=== PATIENT | female | born 1995 | race Two or more races ===

== ENCOUNTER 2023-10-17 10:31 | Inpatient (IN) | payer MEDICAID ==
[2023-09-04 11:05] LABS: Urine Bacteria FEW /hpf (None Seen); Urine Blood Negative /uL (Negative); Urine Clarity Clear (Clear); Urine Color Colorless (Yellow); Urine Protein, UAD Negative (Negative); Urine Specific Gravity 1.004 (1.001-1.035); Urine Urobilinogen Normal (Negative); Urine WBC 1 /hpf (0 - 5)
[2023-09-04 11:12] LABS: Basophils # (auto) 0.1 10 ^3/uL (0-0.2); Basophils % (auto) 1.3 % (0.0-2.0); Eosinophils # (auto) 0.1 10 ^3/uL (0-0.8); Eosinophils % (auto) 1.2 % (0.0-7.0); Hemoglobin 11.5 g/dL (12.2-16.2); Lymphocytes # (auto) 1.8 10 ^3/uL (0.4-5.4); Lymphocytes % (auto) 31.2 % (10.0-50.0); Mean Corpuscular Hemoglobin 32.2 pg (28.0-32.0); Mean Corpuscular Volume 97.7 fL (80.0-100.0); Monocytes # (auto) 0.5 10 ^3/uL (0-1.3); Monocytes % (auto) 8.9 % (0.0-12.0); Neutrophils # (auto) 3.2 10 ^3/uL (1.6-8.6); Neutrophils % (auto) 57.4 % (37.0-80.0); Red Blood Cells 3.58 10^6/uL (4.0-5.20); Red Cell Distribution Width 18.1 % (11.8-14.3); White Blood Cell 5.6 10^3/uL (4.4-10.8)
[2023-09-04 11:16] LABS: INR 0.93 (0.9-1.15); Partial Thromboplastin Time 29.1 SEC (24.5-34.5); Prothrombin Time 9.9 sec (9.3-11.8)
[2023-09-04 12:01] LABS: Alanine Aminotransferase 17 U/L (7-40); Alkaline Phosphatase 72 U/L (46-116); Anion Gap 7 (5-15); Calcium 9.8 mg/dL (8.5-10.1); Carbon Dioxide 28 mmol/L (20-30); Chloride 104 mmol/L (98-107); Glucose 86 mg/dL (74-106); Potassium 3.9 mmol/L (3.5-5.1); Sodium 139 mmol/L (136-145)
[2023-09-04 12:02] LABS: Aspartate Aminotransferase 21 U/L (13-40)
[2023-09-04 12:03] LABS: Bilirubin, Total 0.4 mg/dL (0.2-1.0); Total Protein 7.8 g/dL (5.7-8.2)
[2023-09-04 12:08] LABS: BUN/Creatinine Ratio 7.4 (10.0-20.0); Blood Urea Nitrogen < 5 mg/dL (9-23)
[2023-10-15 09:02] LABS: Urine Bacteria FEW /hpf (None Seen); Urine Blood 1+ /uL (Negative); Urine Clarity Clear (Clear); Urine Color Light-Yellow (Yellow); Urine Protein, UAD Negative (Negative); Urine Specific Gravity 1.022 (1.001-1.035); Urine Urobilinogen Normal (Negative); Urine WBC <1 /hpf (0 - 5)
[2023-10-15 09:04] LABS: Basophils # (auto) 0 10 ^3/uL (0-0.2); Eosinophils # (auto) 0 10 ^3/uL (0-0.8); Eosinophils % (auto) 1.2 % (0.0-7.0); Hemoglobin 10.9 g/dL (12.2-16.2); Lymphocytes # (auto) 1.4 10 ^3/uL (0.4-5.4); Lymphocytes % (auto) 40.9 % (10.0-50.0); Mean Corpuscular Hemoglobin 31.7 pg (28.0-32.0); Mean Corpuscular Hgb Conc. 32.9 g/dL (32.0-36.0); Mean Corpuscular Volume 96.4 fL (80.0-100.0); Monocytes # (auto) 0.3 10 ^3/uL (0-1.3); Neutrophils # (auto) 1.7 10 ^3/uL (1.6-8.6); Neutrophils % (auto) 48.9 % (37.0-80.0); Nucleated Red Blood Cells % 0.1 %; Red Blood Cells 3.43 10^6/uL (4.0-5.20); Red Cell Distribution Width 18.1 % (11.8-14.3); White Blood Cell 3.5 10^3/uL (4.4-10.8)
[2023-10-15 09:09] LABS: INR 0.93 (0.9-1.15); Partial Thromboplastin Time 29.2 SEC (24.5-34.5); Prothrombin Time 9.9 sec (9.3-11.8)
[2023-10-15 09:25] LABS: Alanine Aminotransferase 11 U/L (7-40); Albumin 4.5 g/dL (3.2-4.8); Alkaline Phosphatase 60 U/L (46-116); Anion Gap 4 (5-15); Aspartate Aminotransferase 12 U/L (13-40); BUN/Creatinine Ratio 14.5 (10.0-20.0); Bilirubin, Total 0.4 mg/dL (0.2-1.0); Blood Urea Nitrogen 9 mg/dL (9-23); Calcium 9.4 mg/dL (8.7-10.4); Carbon Dioxide 27 mmol/L (20-30); Chloride 107 mmol/L (98-107); Glucose 83 mg/dL (74-106); Potassium 4.2 mmol/L (3.5-5.1); Sodium 138 mmol/L (136-145)
[2023-10-15 09:26] LABS: Total Protein 6.8 g/dL (5.7-8.2)
[~2023-10-17] VITALS: Ht 162.6 cm; Wt 80.0 kg
[~2023-10-17 10:31] MED LIST: PROPOFOL 10 MG/ML 20 ML IV ONE; fentaNYL CITRATE 100 MCG/2 ML VL ONE
[2023-10-17] MEDS: ceFAZolin 2 GM/D5W50ml 50 ML IV ONE (11:05)
[2023-10-17] MEDS: SUCCINYLCHOLINE CHLORIDE 20 MG/ML 10ML VIAL IV ONE (11:19)
[2023-10-17] MEDS ORDERED: fentaNYL CITRATE 100 MCG/2 ML VL ONE (11:23)
[2023-10-17] MEDS: LIDOCAINE 1% HCL (LOCAL ANESTH.) INJ 20ML MDV ONE (11:27)
[2023-10-17] MEDS: LIDOCAINE 2% JELLY 11ml (GLYDO) ONE (11:45)
[2023-10-17] MEDS ORDERED: MEPERIDINE HCL (50 MG/ML) 1 ML VIAL ONE (11:57)
[2023-10-17] MEDS: LIDOCAINE HCL 2% TOP JELLY 5ML TOP ONE (12:00)
[2023-10-17] MEDS ORDERED: ONDANSETRON HCL 4 MG/2 ML VIAL ONE (12:07)
[2023-10-17] MEDS ORDERED: DexAMETHasone SOD PHOS 10MG/1ML VIAL INJ ONE (12:07)
[2023-10-17] MEDS: LIDOCAINE W/ EPINEPHRINE 2% INJ 20ML VIAL ONE (12:09)
[2023-10-17] MEDS: GELATIN 1 SPONGE SIZE 100 TOP ONE (12:25)
[2023-10-17] MEDS ORDERED: SUGAMMADEX 200mg/2ml Vial (100MG/ML) IV ONE (12:45)
[2023-10-17] MEDS ORDERED: ROCURONIUM 10MG/ML 10ML VIAL IV ONE (12:46)
[2023-10-17 12:48] VITALS: PULSE 74; RESP 15; O2SAT 98
[2023-10-17] MEDS ORDERED: MEPERIDINE HCL (25 MG/ML) 1ML VIAL IV PRN (13:00)
[2023-10-17] MEDS ORDERED: HYDROmorphone HCL 2 MG/ML VL/or syr IV PRN (13:00)
[2023-10-17] MEDS: ONDANSETRON HCL 4 MG/2 ML VIAL IV ONE (13:00)
[2023-10-17] MEDS: ONDANSETRON HCL 4 MG/2 ML VIAL ONE (13:03)
[2023-10-17] MEDS: HYDROmorphone HCL 2 MG/ML VL/or syr IV ONE ×2 (13:33→14:09)
[2023-10-17] MEDS: metroNIDAZOLE 500MG/100ML 100 ML IV SCH (14:31)
[2023-10-17 15:30] VITALS: BP 132/82; PULSE 94; RESP 18; TEMP 98.7; O2SAT 100; O2SAT 97
[2023-10-17] MEDS ORDERED: NITROGLYCERIN 0.4 MG SL TAB SL PRN (15:30)
[2023-10-17] MEDS: MORPHINE SULFATE INJ 2 MG/ml SYRG IV PRN (17:23)
[2023-10-17] MEDS: ONDANSETRON HCL 4 MG/2 ML VIAL IV PRN (17:24)
[2023-10-17 20:00] VITALS: PULSE 89; RESP 16; O2SAT 100
[2023-10-17 21:00] VITALS: BP 141/91; PULSE 89; RESP 16; TEMP 98.4; O2SAT 100
[2023-10-17 22:42] LABS: Hematocrit 35.4 % (36.0-46.0); Hemoglobin 11.4 g/dL (12.2-16.2)
[2023-10-17] MEDS: D5W/SOD CHL 0.45%/KCL 20MEQ 1,000 ML IV SCH (22:45)
[2023-10-18] VITALS (8 sets, daily range): BP systolic 131–144; BP diastolic 81–93; PULSE 60–84; RESP 14–20; TEMP 97.9–98.6; O2SAT 95–100
[2023-10-18] MEDS: DOCUSATE SOD 100 MG CAP PO SCH (00:27)
[2023-10-18 02:02] LABS: INR 1.04 (0.9-1.15); Partial Thromboplastin Time 28.9 SEC (24.5-34.5)
[2023-10-18] MEDS ORDERED: MIDAZOLAM HCL 2MG/2ML 2ml VIAL (1mg/ml) ONE (02:49)
[2023-10-18] MEDS ORDERED: MEPERIDINE HCL (50 MG/ML) 1 ML VIAL ONE (02:49)
[2023-10-18] MEDS: LIDOCAINE W/ EPINEPHRINE 2% INJ 20ML VIAL ONE ×2 (02:49→02:55)
[2023-10-18] MEDS: BUPIVACAINE 0.25% INJ 50ML VIAL ONE ×2 (02:49→02:56)
[2023-10-18] MEDS ORDERED: fentaNYL CITRATE 100 MCG/2 ML VL ONE (02:49)
[2023-10-18] MEDS: LIDOCAINE W/ EPINEPHRINE 1% 20ML VIAL ONE (02:50)
[2023-10-18] MEDS: BUPIVACAINE W/ EPINEPH 0.5% INJ 50ML MDV IJ ONE (02:56)
[2023-10-18] MEDS: ONDANSETRON HCL 4 MG/2 ML VIAL IV ONE (03:00)
[2023-10-18] MEDS ORDERED: ePHEDrine SULFATE 50 MG/ML AMP IV PRN (03:00)
[2023-10-18] MEDS ORDERED: MIDAZOLAM HCL 2MG/2ML 2ml VIAL (1mg/ml) IV PRN (03:00)
[2023-10-18] MEDS ORDERED: hydrALAZINE HCL 20 MG/ML VL IV PRN (03:00)
[2023-10-18] MEDS ORDERED: MORPHINE SULFATE 4 MG/ML SYR/VIAL IV PRN (03:00)
[2023-10-18] MEDS ORDERED: PROPOFOL 10 MG/ML 20 ML IV ONE (03:19)
[2023-10-18] MEDS ORDERED: DexAMETHasone SOD PHOS 10MG/1ML VIAL INJ ONE (03:19)
[2023-10-18] MEDS: LIDOCAINE 2% JELLY 11ml (GLYDO) ONE (03:43)
[2023-10-18] MEDS: GELATIN 1 SPONGE SIZE 100 TOP ONE (03:43)
[2023-10-18] MEDS ORDERED: ONDANSETRON HCL 4 MG/2 ML VIAL ONE (03:49)
[2023-10-18] MEDS: HYDROmorphone HCL 2 MG/ML VL/or syr IV PRN ×2 (04:09→11:42)
[2023-10-18] MEDS: PANTOPRAZOLE 40 MG/10 ML VIAL INJ IV SCH (07:30)
[2023-10-18 07:47] LABS: Basophils # (auto) 0 10 ^3/uL (0-0.2); Basophils % (auto) 0.2 % (0.0-2.0); Eosinophils # (auto) 0 10 ^3/uL (0-0.8); Eosinophils % (auto) 0.1 % (0.0-7.0); Hematocrit 32.6 % (36.0-46.0); Hemoglobin 10.7 g/dL (12.2-16.2); Lymphocytes # (auto) 0.6 10 ^3/uL (0.4-5.4); Lymphocytes % (auto) 9.3 % (10.0-50.0); Mean Corpuscular Hemoglobin 32.1 pg (28.0-32.0); Mean Corpuscular Hgb Conc. 32.8 g/dL (32.0-36.0); Monocytes # (auto) 0.1 10 ^3/uL (0-1.3); Monocytes % (auto) 2.2 % (0.0-12.0); Neutrophils # (auto) 5.6 10 ^3/uL (1.6-8.6); Neutrophils % (auto) 88.2 % (37.0-80.0); Nucleated Red Blood Cells % 0.2 %; Red Blood Cells 3.33 10^6/uL (4.0-5.20); Red Cell Distribution Width 18.5 % (11.8-14.3); White Blood Cell 6.4 10^3/uL (4.4-10.8)
[2023-10-18 08:00] LABS: Alanine Aminotransferase 10 U/L (7-40); Albumin 4.3 g/dL (3.2-4.8); Alkaline Phosphatase 54 U/L (46-116); Anion Gap 5 (5-15); Aspartate Aminotransferase 19 U/L (13-40); Bilirubin, Total 0.4 mg/dL (0.2-1.0); Calcium 9.1 mg/dL (8.7-10.4); Carbon Dioxide 24 mmol/L (20-30); Chloride 106 mmol/L (98-107); Glucose 124 mg/dL (74-106); Potassium 4.2 mmol/L (3.5-5.1); Sodium 135 mmol/L (136-145); Total Protein 6.5 g/dL (5.7-8.2)
[2023-10-18 08:03] LABS: BUN/Creatinine Ratio 8.5 (10.0-20.0); Blood Urea Nitrogen < 5 mg/dL (9-23)
[2023-10-18 11:23] LABS: Basophils # (auto) 0 10 ^3/uL (0-0.2); Basophils % (auto) 0.3 % (0.0-2.0); Eosinophils # (auto) 0 10 ^3/uL (0-0.8); Eosinophils % (auto) 0.3 % (0.0-7.0); Hematocrit 31.6 % (36.0-46.0); Hemoglobin 10.3 g/dL (12.2-16.2); Lymphocytes # (auto) 0.7 10 ^3/uL (0.4-5.4); Lymphocytes % (auto) 10.6 % (10.0-50.0); Mean Corpuscular Hemoglobin 31.5 pg (28.0-32.0); Mean Corpuscular Hgb Conc. 32.6 g/dL (32.0-36.0); Mean Corpuscular Volume 96.7 fL (80.0-100.0); Monocytes # (auto) 0.2 10 ^3/uL (0-1.3); Monocytes % (auto) 2.4 % (0.0-12.0); Neutrophils # (auto) 6.1 10 ^3/uL (1.6-8.6); Neutrophils % (auto) 86.4 % (37.0-80.0); Nucleated Red Blood Cells % 0.1 %; Red Blood Cells 3.27 10^6/uL (4.0-5.20); Red Cell Distribution Width 18.3 % (11.8-14.3)
[2023-10-18] MEDS: levoFLOXacin 500MG 100 ML IV ONE (11:28)
[2023-10-19] VITALS (8 sets, daily range): BP systolic 125–150; BP diastolic 77–93; PULSE 60–65; RESP 14–20; TEMP 97.3–98.6; O2SAT 98–100
[2023-10-19 07:52] LABS: Basophils # (auto) 0 10 ^3/uL (0-0.2); Basophils % (auto) 0.4 % (0.0-2.0); Eosinophils # (auto) 0 10 ^3/uL (0-0.8); Eosinophils % (auto) 0.1 % (0.0-7.0); Hematocrit 29.1 % (36.0-46.0); Hemoglobin 9.5 g/dL (12.2-16.2); Lymphocytes # (auto) 1.9 10 ^3/uL (0.4-5.4); Lymphocytes % (auto) 34.4 % (10.0-50.0); Mean Corpuscular Hemoglobin 31.2 pg (28.0-32.0); Mean Corpuscular Hgb Conc. 32.6 g/dL (32.0-36.0); Mean Corpuscular Volume 95.5 fL (80.0-100.0); Monocytes # (auto) 0.5 10 ^3/uL (0-1.3); Monocytes % (auto) 9.3 % (0.0-12.0); Neutrophils # (auto) 3.1 10 ^3/uL (1.6-8.6); Neutrophils % (auto) 55.8 % (37.0-80.0); Nucleated Red Blood Cells % 0.1 %; Red Blood Cells 3.04 10^6/uL (4.0-5.20); White Blood Cell 5.5 10^3/uL (4.4-10.8)
[2023-10-19 07:57] LABS: Chloride 105 mmol/L (98-107); Potassium 3.2 mmol/L (3.5-5.1); Sodium 139 mmol/L (136-145)
[2023-10-19 07:58] LABS: Anion Gap 5 (5-15); Calcium 8.7 mg/dL (8.7-10.4); Carbon Dioxide 29 mmol/L (20-30)
[2023-10-19 08:03] LABS: Glucose 87 mg/dL (74-106)
[2023-10-19 08:07] LABS: BUN/Creatinine Ratio 8.3 (10.0-20.0); Blood Urea Nitrogen < 5 mg/dL (9-23)
[2023-10-19] MEDS: levoFLOXacin 500MG 100 ML IV SCH (09:33)
[2023-10-19] MEDS: LIDOCAINE 2% TOPICAL JELLY 5 ML URJT TOP PRN (09:41)
[2023-10-19] MEDS: POTASSIUM CHL 20 Meq TABLET PO ONE (14:46)
[2023-10-20 01:00] VITALS: BP 134/82; PULSE 63; RESP 20; TEMP 98.2; O2SAT 100
[2023-10-20 05:00] VITALS: BP 125/77; PULSE 70; RESP 20; TEMP 98.3; O2SAT 100
[2023-10-20 06:15] LABS: Basophils # (auto) 0 10 ^3/uL (0-0.2); Basophils % (auto) 0.5 % (0.0-2.0); Eosinophils # (auto) 0.1 10 ^3/uL (0-0.8); Eosinophils % (auto) 1.2 % (0.0-7.0); Hematocrit 30.2 % (36.0-46.0); Hemoglobin 9.8 g/dL (12.2-16.2); Lymphocytes # (auto) 1.9 10 ^3/uL (0.4-5.4); Lymphocytes % (auto) 43.9 % (10.0-50.0); Mean Corpuscular Hemoglobin 31.6 pg (28.0-32.0); Mean Corpuscular Hgb Conc. 32.5 g/dL (32.0-36.0); Mean Corpuscular Volume 97.2 fL (80.0-100.0); Monocytes # (auto) 0.4 10 ^3/uL (0-1.3); Monocytes % (auto) 8.8 % (0.0-12.0); Neutrophils % (auto) 45.6 % (37.0-80.0); Nucleated Red Blood Cells % 0.1 %; White Blood Cell 4.4 10^3/uL (4.4-10.8)
[2023-10-20 09:00] VITALS: BP 119/82; PULSE 68; RESP 16; TEMP 98.3; O2SAT 100
[2023-10-20] MEDS: ACETAMINOPHEN/CODEINE#3 (300/30mg) TAB PO PRN (12:07)
[2023-10-20 13:35] VITALS: BP 139/96; PULSE 70; RESP 19; TEMP 99.7; O2SAT 100
[2023-10-20] MEDS ORDERED: LEVO500T91 PO (15:31)
[2023-10-20] MEDS ORDERED: ACET300T58 PO (15:31)
[2023-10-20] MEDS ORDERED: MET500T PO (15:31)
[2023-10-20] MEDS ORDERED: UROJET2 TOP (15:31)
[2023-10-20] MEDS ORDERED: LIDO5GEL EX (15:35)
[2023-10-20] MEDS ORDERED: DOCU-94 PO (15:36)
[2023-10-20 17:00] VITALS: BP 132/89; PULSE 71; RESP 19; TEMP 98.7; O2SAT 100
[2023-10-21] MEDS ORDERED: HYDR-4902 PO (12:32)
== END 2023-10-20 19:00 | disposition home or self-care (01) | DRG 226 ==
LOC: SUR 10:31 → OVERFLOW 15:21 → CENTRAL 15:58 → WEST WING 10-18 05:00
PROVIDERS: ADMIT Internal Medicine; ATTEND Internal Medicine
PROC: 06BY0ZC Excision of Hemorrhoidal Plexus, Open Approach (ICD-10-PCS; principal; 2023-10-17 11:39)
PROC: 0DQQXZZ Repair Anus, External Approach (ICD-10-PCS; 2023-10-18)
DX: K64.8 Other hemorrhoids (principal); E66.9 Obesity, unspecified; K64.4 Residual hemorrhoidal skin tags; Z68.30 Body mass index [BMI] 30.0-30.9, adult
CPT/HCPCS: 36415; 80048; 80053; 81001; 84702; 85014; 85018; 85025; 85610; 85730; 86850; 86900; 86901; G0378; J0330; J1100; J1956; J2001; J2250; J2405; J2470; J2704; J3490

== ENCOUNTER 2023-10-21 11:34 | Emergency (ER) | payer MEDICAID ==
[~2023-10-21] VITALS: Ht 162.6 cm; Wt 70.0 kg
[~2023-10-21 11:34] MED LIST changes: +ACET300T58 PO; +DOCU-94 PO; +LEVO500T91 PO; +LIDO5GEL EX; +MET500T PO; -PROPOFOL 10 MG/ML 20 ML IV ONE; +UROJET2 TOP; -fentaNYL CITRATE 100 MCG/2 ML VL ONE
[2023-10-21 12:22] LABS: Basophils # (auto) 0.1 10 ^3/uL (0-0.2); Eosinophils # (auto) 0.1 10 ^3/uL (0-0.8); Eosinophils % (auto) 1.8 % (0.0-7.0); Hemoglobin 11.3 g/dL (12.2-16.2); Lymphocytes # (auto) 1.4 10 ^3/uL (0.4-5.4); Lymphocytes % (auto) 26.4 % (10.0-50.0); Mean Corpuscular Hgb Conc. 32.3 g/dL (32.0-36.0); Monocytes # (auto) 0.4 10 ^3/uL (0-1.3); Monocytes % (auto) 6.8 % (0.0-12.0); Neutrophils # (auto) 3.4 10 ^3/uL (1.6-8.6); Nucleated Red Blood Cells % 0.1 %; Red Blood Cells 3.65 10^6/uL (4.0-5.20); Red Cell Distribution Width 17.6 % (11.8-14.3); White Blood Cell 5.3 10^3/uL (4.4-10.8)
[2023-10-21] MEDS ORDERED: HYDR-4902 PO (12:32)
[2023-10-21] MEDS: HYDROcodone-ACET 10/325MG TAB PO ONE (12:57)
[2023-10-21 12:58] VITALS: BP 129/77; PULSE 74; RESP 19; TEMP 98.4; O2SAT 97
== END 2023-10-21 14:01 | disposition home or self-care (01) ==
LOC: EDBD 11:34 → ER 11:42
DX: K62.89 Other specified diseases of anus and rectum (principal); R42 Dizziness and giddiness; F12.10 Cannabis abuse, uncomplicated; Z98.890 Other specified postprocedural states
CPT/HCPCS: 36415; 85025